=== PATIENT | female | born 1990 | race African-American/Black ===

== ENCOUNTER 2018-09-08 11:40 | Emergency (ER) | payer MEDICAID ==
[~2018-09-08] VITALS: Ht 162.6 cm; Wt 104.0 kg
[2018-09-08] MEDS ORDERED: ACETAMINOPHEN 325MG TABLET PO ONE (13:00)
[2018-09-08 14:21] VITALS: BP 113/75
== END 2018-09-08 14:34 | disposition home or self-care (01) ==
LOC: ER 11:40
DX: L02.411 Cutaneous abscess of right axilla (principal); J45.909 Unspecified asthma, uncomplicated; Z88.0 Allergy status to penicillin; Z88.6 Allergy status to analgesic agent
CPT/HCPCS: 81025; 99283